=== PATIENT | male | born 1945 | race Hispanic/Latino ===

== ENCOUNTER 2018-09-22 20:41 | Emergency (ER) | payer MEDICARE, OTHER ==
[~2018-09-22 20:41] MED LIST: ASPI-1181 PO; BUSP10TA3 PO; CAND8TAB4 PO; CARV6.25 PO; CINN500C PO; INSU100I21 SQ; METF-446 PO; MONT10TA24 PO; MULT-1258 PO; OMEP20CA10 PO; PARO-37 PO; PRAV40TA3 PO; TIZA4TAB4 PO
[2018-09-22 21:32] LABS: APPEARANCE,URINE Cloudy (CLEAR); BILIRUBIN,URINE Negative (NEGATIVE); COLOR,URINE Yellow (YELLOW); GLUCOSE, URINE (UA) Negative (NEGATIVE); KETONES,URINE Negative (NEGATIVE); LEUKOCYTE ESTERASE ,URINE Negative (NEGATIVE); NITRATE,URINE Negative (NEGATIVE); OCCULT BLOOD,URINE Negative (NEGATIVE); PROTEIN,URINE Negative (NEGATIVE); UROBILINOGEN,URINE 0.2 mg/dL (0.2-1.0)
[2018-09-22 21:49] LABS: MUCUS,URINE Rare LPF (None Seen)
[2018-09-22 21:50] LABS: SQUAMOUS EPITHELIAL CELL,UR 0-2 /HPF (0-2)
[2018-09-22 21:51] LABS: BACTERIA,URINE Rare /HPF (None Seen); RBC,URINE 0-1 /HPF (0-1); WBC,URINE 0-1 /HPF (0-1)
[2018-09-22] MEDS ORDERED: ONDANSETRON HCL 4 MG/2 ML VIAL ONE (22:07)
[2018-09-22] MEDS ORDERED: FENTANYL CITRATE PF 50 MCG/1 ML 2ML VIAL ONE (22:07)
== END 2018-09-22 23:25 | disposition home or self-care (01) ==
LOC: EDH 20:41
DX: M54.5 Low back pain (principal); M62.838 Other muscle spasm; E11.9 Type 2 diabetes mellitus without complications; I25.10 Atherosclerotic heart disease of native coronary artery without angina pectoris; Z98.890 Other specified postprocedural states; W18.39XA Other fall on same level, initial encounter; Y93.01 Activity, walking, marching and hiking; Y92.89 Other specified places as the place of occurrence of the external cause; Y99.8 Other external cause status
CPT/HCPCS: 72100; 72170; 81001; 96372; 99284; J2405; J3010

== ENCOUNTER → 2019-03-03 | Outpatient (CLI) | payer OTHER, MEDICARE ==
[~2019-03-03] MED LIST changes: +OMEP-50 PO; -OMEP20CA10 PO; -TIZA4TAB4 PO; +TIZA4TAB5 PO
== END | disposition home or self-care (01) ==
LOC: SHCH 12:56
PROVIDERS: ATTEND Internal Medicine Cardiovascular Disease
DX: I11.9 Hypertensive heart disease without heart failure (principal); I08.1 Rheumatic disorders of both mitral and tricuspid valves; Z83.3 Family history of diabetes mellitus
CPT/HCPCS: 93306

== ENCOUNTER 2019-12-23 15:07 | Emergency (ER) | payer OTHER, MEDICARE ==
[~2019-12-23 15:07] MED LIST changes: -MONT10TA24 PO; +MONT10TA26 PO; -OMEP-50 PO; +OMEP20CA12 PO
[2019-12-23] MEDS ORDERED: SODIUM CHLORIDE IRRIG SOLUTION 1,000 ML IR ONE (15:08)
[2019-12-23 15:42] LABS: BASOPHILS % (AUTO) 0.7 % (0.0-5.0); EOSINOPHILS % (AUTO) 0.9 % (0.0-8.0); LYMPHOCYTES % (AUTO) 30.1 % (21.0-51.0); MEAN CORPUSCULAR HEMOGLOBIN 30.7 pg (27.0-33.0); MEAN CORPUSCULAR HGB CONC 33.1 g/dL (32.0-36.0); MEAN CORPUSCULAR VOLUME 92.9 fL (79-99); MONOCYTES % (AUTO) 6.9 % (3.0-13.0); NEUTROPHILS % (AUTO) 61.3 % (40.0-77.0); PLATELET COUNT (AUTO) 215 K/uL (130-400); RED CELL DISTRIBUTION WIDTH 12.7 % (11.0-15.5); WHITE BLOOD COUNT (AUTO) 10.4 K/uL (4.8-10.8)
[2019-12-23 15:52] LABS: CREATININE 1.7 mg/dL (0.5-1.5)
[2019-12-23 15:53] LABS: APPEARANCE,URINE Clear (CLEAR); BILIRUBIN,URINE Negative (NEGATIVE); COLOR,URINE Yellow (YELLOW); GLUCOSE, URINE (UA) Negative (NEGATIVE); KETONES,URINE Negative (NEGATIVE); LEUKOCYTE ESTERASE ,URINE Trace (NEGATIVE); NITRATE,URINE Negative (NEGATIVE); OCCULT BLOOD,URINE Negative (NEGATIVE); PROTEIN,URINE Negative (NEGATIVE); UROBILINOGEN,URINE 0.2 mg/dL (0.2-1.0)
[2019-12-23 15:58] LABS: ALBUMIN 3.6 g/dL (3.5-5.0); BILIRUBIN,TOTAL 0.3 mg/dL (0.2-1.0); TOTAL PROTEIN, SERUM 7.2 g/dL (6.0-8.3)
[2019-12-23 16:04] LABS: BACTERIA,URINE Rare /HPF (None Seen); RBC,URINE 0-1 /HPF (0-1); SQUAMOUS EPITHELIAL CELL,UR Rare /HPF (0-2); WBC,URINE 0-1 /HPF (0-1)
[2019-12-23 16:05] LABS: HYALINE CASTS, URINE 0-1 /LPF (0-1 /LPF)
== END 2019-12-23 17:30 | disposition home or self-care (01) ==
LOC: EDH 15:07
DX: E86.0 Dehydration (principal); F41.9 Anxiety disorder, unspecified; I10 Essential (primary) hypertension; E11.9 Type 2 diabetes mellitus without complications; I25.10 Atherosclerotic heart disease of native coronary artery without angina pectoris; Z90.49 Acquired absence of other specified parts of digestive tract; Z88.6 Allergy status to analgesic agent
CPT/HCPCS: 36415; 71046; 80053; 81001; 82550; 84484; 85025; 87804; 93005; 96360

== ENCOUNTER → 2020-08-29 | Outpatient (CLI) | payer OTHER, MEDICARE ==
[~2020-08-29] MED LIST changes: -ASPI-1181 PO; +ASPI-1443 PO; -MONT10TA26 PO; +MONT10TA96 PO
== END | disposition home or self-care (01) ==
LOC: RAH 12:57
PROVIDERS: ATTEND Internal Medicine
DX: S91.209A Unspecified open wound of unspecified toe(s) with damage to nail, initial encounter (principal); X58.XXXA Exposure to other specified factors, initial encounter; Y93.89 Activity, other specified; Y92.89 Other specified places as the place of occurrence of the external cause; Y99.8 Other external cause status
CPT/HCPCS: 73620

== ENCOUNTER → 2021-01-24 | Outpatient (CLI) | payer OTHER, MEDICARE ==
[~2021-01-24] MED LIST changes: +MONT10TA32 PO; -MONT10TA96 PO
== END | disposition home or self-care (01) ==
LOC: RAH 12:52
PROVIDERS: ATTEND Internal Medicine
DX: I11.9 Hypertensive heart disease without heart failure (principal); M25.551 Pain in right hip; E11.51 Type 2 diabetes mellitus with diabetic peripheral angiopathy without gangrene
CPT/HCPCS: 93925

== ENCOUNTER 2021-08-25 10:12 | Emergency (ER) | payer OTHER, MEDICARE ==
[~2021-08-25] VITALS: Ht 162.6 cm; Wt 79.4 kg
[~2021-08-25 10:12] MED LIST changes: +CAND8TAB14 PO; -CAND8TAB4 PO; +MONT-39 PO; -MONT10TA32 PO; +TIZA-211 PO; -TIZA4TAB5 PO
[2021-08-25] MEDS ORDERED: KETOROLAC 30MG VIAL (30MG/ML) IM ONE (11:00)
[2021-08-25] MEDS ORDERED: ORPHENADRINE CITRATE 30 MG/ML ML IM ONE (11:00)
[2021-08-25] MEDS ORDERED: ORPH-43 PO (11:31)
[2021-08-25] MEDS ORDERED: MELO7.5T12 PO (11:31)
[2021-08-25] MEDS ORDERED: LIDOP TP (11:31)
[2021-08-25 11:38] VITALS: BP 105/65
== END 2021-08-25 11:47 | disposition home or self-care (01) ==
LOC: EDH 10:12
DX: R51.9 Headache, unspecified (principal); M62.830 Muscle spasm of back; M62.838 Other muscle spasm; I11.9 Hypertensive heart disease without heart failure; E11.9 Type 2 diabetes mellitus without complications; Z88.5 Allergy status to narcotic agent; Z79.1 Long term (current) use of non-steroidal anti-inflammatories (NSAID); Z79.4 Long term (current) use of insulin; Z79.82 Long term (current) use of aspirin; Z79.899 Other long term (current) drug therapy
CPT/HCPCS: 93005; 96372 ×2; 99284; J1885; J2360

== ENCOUNTER 2022-07-07 14:22 | Emergency (ER) | payer OTHER, MEDICARE ==
[~2022-07-07] VITALS: Ht 154.9 cm; Wt 83.0 kg
[~2022-07-07 14:22] MED LIST changes: +LIDOP TP; +MELO7.5T12 PO; +ORPH-43 PO
[2022-07-07 14:24] VITALS: BP 154/58
[2022-07-07] MEDS ORDERED: CIPROFLOXACIN HCL 0.2%/HYDROCORT 1% 10 ML OTIC SUSP ONE (14:51)
[2022-07-07] MEDS ORDERED: HYDROCODONE/ACETAMINOPHEN 5/325 MG TAB PO ONE (15:00)
[2022-07-07] MEDS ORDERED: CIPROFLOXACIN HCL 0.2%/HYDROCORT 1% 10 ML OTIC SUSP OTIC SCH (15:00)
[2022-07-07] MEDS ORDERED: TRAM1TAB2 PO (15:11)
== END 2022-07-07 15:15 | disposition home or self-care (01) ==
LOC: EDH 14:22
DX: H92.01 Otalgia, right ear (principal); E11.9 Type 2 diabetes mellitus without complications; I10 Essential (primary) hypertension; E78.00 Pure hypercholesterolemia, unspecified; Z79.4 Long term (current) use of insulin; Z79.899 Other long term (current) drug therapy

== ENCOUNTER 2022-08-04 10:43 | Inpatient (IN) | payer OTHER, MEDICARE ==
[~2022-08-04] VITALS: Ht 165.1 cm; Wt 81.6 kg
[~2022-08-04 10:43] MED LIST changes: +TRAM1TAB2 PO
[2022-08-04] MEDS ORDERED: 0.9%NACL 1000ML 1,000 ML IV ONE (11:30)
[2022-08-04 11:36] LABS: ALBUMIN 2.7 g/dL (3.5-5.0); BASOPHILS % (AUTO) 0.7 % (0.0-5.0); CREATININE 1.2 mg/dL (0.5-1.5); EOSINOPHILS % (AUTO) 0.3 % (0.0-8.0); HEMATOCRIT 31.5 % (42-54); LYMPHOCYTES % (AUTO) 11.5 % (21.0-51.0); MEAN CORPUSCULAR HEMOGLOBIN 30.2 pg (27.0-33.0); MEAN CORPUSCULAR VOLUME 91.6 fL (79-99); MONOCYTES % (AUTO) 7.1 % (3.0-13.0); PLATELET COUNT (AUTO) 244 K/uL (130-400); RED BLOOD CELL COUNT(AUTO) 3.44 MIL/uL (4.50-6.20); RED CELL DISTRIBUTION WIDTH 14.4 % (11.0-15.5); TOTAL PROTEIN, SERUM 6.9 g/dL (6.0-8.3); WHITE BLOOD COUNT (AUTO) 7.7 K/uL (4.8-10.8)
[2022-08-04 11:38] LABS: POTASSIUM 2.8 mmol/L (3.5-5.1)
[2022-08-04 11:54] LABS: INR 0.97 (0.85-1.15); PROTHROMBIN TIME 10.6 SEC (9.6-11.6)
[2022-08-04] MEDS ORDERED: 0.9%NACL 1000ML 1,914 ML IV ONE (13:00)
[2022-08-04] MEDS ORDERED: CEFTRIAXONE 2GM VIAL IVP ONE (13:00)
[2022-08-04] MEDS ORDERED: POTASSIUM BICARB/CIT AC 25 MEQ TABLET.EFF PO ONE (13:00)
[2022-08-04 13:30] LABS: MAGNESIUM 1.5 mg/dL (1.80-2.40)
[2022-08-04 13:35] LABS: APPEARANCE,URINE CLOUDY (CLEAR); BILIRUBIN,URINE NEGATIVE (NEGATIVE); COLOR,URINE YELLOW (YELLOW); GLUCOSE, URINE (UA) 150 mg/dL (NEGATIVE); KETONES,URINE NEGATIVE (NEGATIVE); LEUKOCYTE ESTERASE ,URINE NEGATIVE Leu/uL (NEGATIVE); NITRATE,URINE NEGATIVE (NEGATIVE); OCCULT BLOOD,URINE SMALL (NEGATIVE); PH,URINE 5.5 (5.0-8.0); PROTEIN,URINE 70 mg/dL (NEGATIVE); UROBILINOGEN,URINE 0.2 mg/dL (0.2-1.0)
[2022-08-04 13:47] LABS: BACTERIA,URINE RARE /HPF (None Seen); MUCUS,URINE FEW LPF (None Seen); SQUAMOUS EPITHELIAL CELL,UR RARE /HPF (0-2)
[2022-08-04] MEDS ORDERED: CLONIDINE HCL 0.1 MG TABLET PO PRN (15:00)
[2022-08-04] MEDS ORDERED: LACTULOSE 20 GM/30 ML UDCUP PO PRN (15:00)
[2022-08-04] MEDS ORDERED: GLUCAGON 1MG KIT 1 MG ML IM PRN (15:00)
[2022-08-04] MEDS ORDERED: ONDANSETRON 4MG INJ IVP PRN (15:00)
[2022-08-04] MEDS ORDERED: HYDRALAZINE 20MG/ML VIAL IV PRN (15:00)
[2022-08-04] MEDS ORDERED: POTASSIUM CHLORIDE 10% ELIXIR 20 MEQ/15 ML UDCUP PO PRN (15:00)
[2022-08-04] MEDS ORDERED: CEFTRIAXONE 1G VIAL IVP SCH (15:00)
[2022-08-04] MEDS ORDERED: LIDOCAINE HCL-MPF 1% 2ML VIAL IV PRN ×2 (15:00)
[2022-08-04] MEDS ORDERED: POTASSIUM CHLORIDE 20MEQ/100ML 100 ML IV PRN (15:00)
[2022-08-04] MEDS ORDERED: DEXTROSE 50%-WATER 50 ML DISP.SYRIN IV PRN (15:00)
[2022-08-04] MEDS ORDERED: ACETAMINOPHEN 650 MG SUPPOSITORY RC PRN (15:00)
[2022-08-04] MEDS ORDERED: ACETAMINOPHEN 325 MG TAB PO PRN (15:00)
[2022-08-04] MEDS ORDERED: VANCOMYCIN 1G VIAL IVPB ONE (15:30)
[2022-08-04] MEDS ORDERED: VANCOMYCIN PROTOCOL PER PHARMACY IV SCH (15:30)
[2022-08-04] MEDS: MAGNESIUM 2GM PREMIX 50ML 50 ML IV PRN (16:04)
[2022-08-04] MEDS: DOXYCYCLINE 100MG+NS 250ML IV SCH (16:04)
[2022-08-04] MEDS: LACTATED RINGERS 1000ML 1,000 ML IV SCH (16:05)
[2022-08-04] MEDS ORDERED: IOHEXOL-350 50ML VIAL IV ONE (16:44)
[2022-08-04 17:31] LABS: AMPHET/METH SCREEN,URINE NEGATIVE (NEGATIVE); BARBITURATE SCREEN, URINE NEGATIVE (NEGATIVE); BENZODIAZEPINES SCREEN,URINE NEGATIVE (NEGATIVE); CANNABINOID SCREEN,URINE NEGATIVE (NEGATIVE); COCAINE SCREEN,URINE NEGATIVE (NEGATIVE); OPIATE SCREEN,URINE NEGATIVE (NEGATIVE); PHENCYCLIDINE SCREEN,URINE NEGATIVE (NEGATIVE)
[2022-08-04] MEDS ORDERED: ACYCLOVIR 1000 MG VIAL IV SCH (18:30)
[2022-08-04] MEDS: VANCOMYCIN 1.75 GM/250 ML BAG 250 ML IV SCH (18:37)
[2022-08-04 19:45] VITALS: BP 134/68
[2022-08-04 23:00] VITALS: BP 162/63
[2022-08-04] MEDS: NACL 0.9% IV SCH (23:15)
[2022-08-04] MEDS: ACYCLOVIR IV SCH (23:15)
[2022-08-05] MEDS ORDERED: LOSA50TA64 PO (01:39)
[2022-08-05] MEDS ORDERED: [UNRECOGNIZED DRUG - CODE] PO (01:39)
[2022-08-05] MEDS ORDERED: SIMV-46 PO (01:39)
[2022-08-05] MEDS ORDERED: GABA-529 PO (01:39)
[2022-08-05] MEDS ORDERED: CILO100T3 PO (01:39)
[2022-08-05] MEDS: NACL 0.9% IV SCH ×3 (03:20→18:29)
[2022-08-05] MEDS: ACYCLOVIR IV SCH ×3 (03:20→18:29)
[2022-08-05] MEDS: DOXYCYCLINE 100MG+NS 250ML IV SCH ×2 (03:20→15:31)
[2022-08-05] MEDS: CEFTRIAXONE 1G VIAL IVP SCH ×2 (03:22→14:24)
[2022-08-05 03:39] VITALS: BP 148/52
[2022-08-05 03:49] LABS: BASOPHILS % (AUTO) 0.6 % (0.0-5.0); EOSINOPHILS % (AUTO) 0.1 % (0.0-8.0); HEMATOCRIT 30.9 % (42-54); LYMPHOCYTES % (AUTO) 17.3 % (21.0-51.0); MEAN CORPUSCULAR HEMOGLOBIN 29.6 pg (27.0-33.0); MEAN CORPUSCULAR VOLUME 92.2 fL (79-99); MONOCYTES % (AUTO) 7.6 % (3.0-13.0); NEUTROPHILS % (AUTO) 73.9 % (40.0-77.0); PLATELET COUNT (AUTO) 220 K/uL (130-400); RED BLOOD CELL COUNT(AUTO) 3.35 MIL/uL (4.50-6.20); RED CELL DISTRIBUTION WIDTH 14.5 % (11.0-15.5); WHITE BLOOD COUNT (AUTO) 8.3 K/uL (4.8-10.8)
[2022-08-05 04:11] LABS: MAGNESIUM 1.7 mg/dL (1.80-2.40); PHOSPHORUS 2.5 mg/dL (2.5-4.9); POTASSIUM 3.1 mmol/L (3.5-5.1)
[2022-08-05] MEDS: POTASSIUM CHLORIDE 20MEQ/100ML 100 ML IV PRN (04:32)
[2022-08-05] MEDS: MAGNESIUM 2GM PREMIX 50ML 50 ML IV PRN (04:33)
[2022-08-05 07:15] VITALS: BP 144/60
[2022-08-05 08:43] LABS: HEMATOCRIT 32.3 % (42-54); MEAN CORPUSCULAR HEMOGLOBIN 29.7 pg (27.0-33.0); MEAN CORPUSCULAR HGB CONC 31.6 g/dL (32.0-36.0); MEAN CORPUSCULAR VOLUME 93.9 fL (79-99); PLATELET COUNT (AUTO) 218 K/uL (130-400); RED BLOOD CELL COUNT(AUTO) 3.44 MIL/uL (4.50-6.20); RED CELL DISTRIBUTION WIDTH 14.6 % (11.0-15.5); WHITE BLOOD COUNT (AUTO) 9.2 K/uL (4.8-10.8)
[2022-08-05 09:05] LABS: LYMPHOCYTES % (MANUAL) 24 % (22-44); MAN.DIFF COMMENT-IMPRESSION MANUAL DIFFERENTIAL; MONOCYTES % (MANUAL) 5 % (2-9); PLATELET MORPHOLOGY COMMENT ADEQUATE; SEGMENTED NEUTROPHILS % 71 % (40-70)
[2022-08-05 09:22] LABS: ALANINE AMINOTRANSFERASE 15 U/L (12-78); ALBUMIN 2.4 g/dL (3.5-5.0); AMMONIA 12 umol/L (11-32); ASPARTATE AMINOTRANSFERASE 23 U/L (10-37); BILIRUBIN,DIRECT < 0.1 mg/dL (0.0-0.3); THYROID STIMULATING HORMONE 0.98 uIU/mL (0.36-3.74); TOTAL PROTEIN, SERUM 6.4 g/dL (6.0-8.3)
[2022-08-05] MEDS: KCL 20 MEQ ERTAB PO PRN ×2 (09:28→12:41)
[2022-08-05 11:15] VITALS: BP 150/51
[2022-08-05] MEDS ORDERED: COMPOUND IV REFRIGERATED 1 EACH IVSOLN MISC PRN (12:00)
[2022-08-05] MEDS ORDERED: COMPOUND IV MISC 1 EACH IVSOLN MISC PRN (12:00)
[2022-08-05 15:15] VITALS: BP 161/69
[2022-08-05] MEDS: VANCOMYCIN 1.75 GM/250 ML BAG 250 ML IV SCH (16:50)
[2022-08-05] MEDS ORDERED: AMPICILLIN 1GM+NS 50ML IV SCH (19:30)
[2022-08-05 20:00] VITALS: BP 158/67
[2022-08-05] MEDS: AMPICILLIN 1GM+NS 50ML IV SCH (20:31)
[2022-08-05] MEDS: LACTATED RINGERS 1000ML 1,000 ML IV SCH (20:32)
[2022-08-06] VITALS (7 sets, daily range): BP systolic 153–179; BP diastolic 67–75
[2022-08-06] MEDS: AMPICILLIN 1GM+NS 50ML IV SCH ×7 (00:25→23:32)
[2022-08-06] MEDS: CEFTRIAXONE 1G VIAL IVP SCH ×2 (03:19→15:09)
[2022-08-06] MEDS: NACL 0.9% IV SCH ×3 (03:24→17:07)
[2022-08-06] MEDS: ACYCLOVIR IV SCH ×3 (03:24→17:07)
[2022-08-06 04:27] LABS: HEMATOCRIT 28.7 % (42-54); MEAN CORPUSCULAR HEMOGLOBIN 29.1 pg (27.0-33.0); MEAN CORPUSCULAR HGB CONC 33.1 g/dL (32.0-36.0); MEAN CORPUSCULAR VOLUME 87.8 fL (79-99); RED BLOOD CELL COUNT(AUTO) 3.27 MIL/uL (4.50-6.20); RED CELL DISTRIBUTION WIDTH 14.6 % (11.0-15.5); WHITE BLOOD COUNT (AUTO) 6.9 K/uL (4.8-10.8)
[2022-08-06 04:49] LABS: ALBUMIN 2.2 g/dL (3.5-5.0); POTASSIUM 3.5 mmol/L (3.5-5.1); TOTAL PROTEIN, SERUM 6.1 g/dL (6.0-8.3)
[2022-08-06 07:34] LABS: INR 0.97 (0.85-1.15); PROTHROMBIN TIME 10.6 SEC (9.6-11.6)
[2022-08-06 07:35] LABS: PARTIAL THROMBOPLASTIN TIME 34.6 SEC (26.3-35.5)
[2022-08-06] MEDS: FAMOTIDINE 20MG TAB PO SCH ×2 (11:25→21:05)
[2022-08-06] MEDS: LACTATED RINGERS 1000ML 1,000 ML IV SCH ×2 (11:25→23:36)
[2022-08-06] MEDS: MULTIVITAMIN WITH MINERALS TABLET PO SCH (11:43)
[2022-08-06] MEDS: GABAPENTIN 100 MG CAPSULE PO SCH ×2 (13:17→21:05)
[2022-08-06] MEDS: VANCOMYCIN 1.75 GM/250 ML BAG 250 ML IV SCH (16:28)
[2022-08-06] MEDS: INSULIN GLARGINE 100 UNITS/ML 10 ML VIAL SQ SCH (21:14)
[2022-08-06] MEDS: INSULIN HUMULIN R 100 UNIT/ML 3ML SQ SCH (21:15)
[2022-08-07] MEDS: CEFTRIAXONE 1G VIAL IVP SCH ×2 (02:54→15:31)
[2022-08-07] MEDS: ACYCLOVIR IV SCH ×3 (02:54→17:32)
[2022-08-07] MEDS: NACL 0.9% IV SCH ×3 (02:54→17:32)
[2022-08-07 04:41] VITALS: BP 163/71
[2022-08-07 05:24] LABS: BASOPHILS % (AUTO) 0.6 % (0.0-5.0); HEMATOCRIT 30.1 % (42-54); LYMPHOCYTES % (AUTO) 29.5 % (21.0-51.0); MEAN CORPUSCULAR HEMOGLOBIN 29.4 pg (27.0-33.0); MEAN CORPUSCULAR HGB CONC 32.6 g/dL (32.0-36.0); MEAN CORPUSCULAR VOLUME 90.4 fL (79-99); MONOCYTES % (AUTO) 14.2 % (3.0-13.0); NEUTROPHILS % (AUTO) 54.4 % (40.0-77.0); PLATELET COUNT (AUTO) 244 K/uL (130-400); RED BLOOD CELL COUNT(AUTO) 3.33 MIL/uL (4.50-6.20); WHITE BLOOD COUNT (AUTO) 6.9 K/uL (4.8-10.8)
[2022-08-07 05:33] LABS: CREATININE 0.9 mg/dL (0.5-1.5); MAGNESIUM 1.6 mg/dL (1.80-2.40); POTASSIUM 3.1 mmol/L (3.5-5.1)
[2022-08-07] MEDS: AMPICILLIN 1GM+NS 50ML IV SCH ×5 (05:37→20:22)
[2022-08-07] MEDS: INSULIN HUMULIN R 100 UNIT/ML 3ML SQ SCH ×4 (06:33→20:24)
[2022-08-07] MEDS: MAGNESIUM 2GM PREMIX 50ML 50 ML IV PRN (06:49)
[2022-08-07] MEDS: SIMVASTATIN 20 MG TABLET PO SCH ×2 (08:59→20:22)
[2022-08-07] MEDS: FAMOTIDINE 20MG TAB PO SCH ×2 (08:59→20:22)
[2022-08-07] MEDS: LOSARTAN 50 MG TABLET PO SCH (08:59)
[2022-08-07] MEDS: GABAPENTIN 100 MG CAPSULE PO SCH ×3 (08:59→20:22)
[2022-08-07] MEDS: MULTIVITAMIN WITH MINERALS TABLET PO SCH (08:59)
[2022-08-07] MEDS: KCL 20 MEQ ERTAB PO PRN ×3 (09:00→12:11)
[2022-08-07] MEDS: POTASSIUM CHLORIDE 20MEQ/100ML 100 ML IV PRN ×2 (09:00→12:11)
[2022-08-07 09:52] VITALS: BP 189/69
[2022-08-07] MEDS: LACTATED RINGERS 1000ML 1,000 ML IV SCH (10:06)
[2022-08-07 11:50] VITALS: BP 148/72
[2022-08-07 14:27] LABS: MAGNESIUM 2.1 mg/dL (1.80-2.40); POTASSIUM 4.6 mmol/L (3.5-5.1)
[2022-08-07] MEDS: VANCOMYCIN 1.75 GM/250 ML BAG 250 ML IV SCH (15:33)
[2022-08-07 15:43] VITALS: BP 179/76
[2022-08-07] MEDS: INSULIN GLARGINE 100 UNITS/ML 10 ML VIAL SQ SCH (20:25)
[2022-08-07 21:06] VITALS: BP 130/58
[2022-08-07 23:59] VITALS: BP 133/63
[2022-08-08] MEDS: AMPICILLIN 1GM+NS 50ML IV SCH ×6 (02:06→17:55)
[2022-08-08] MEDS: LACTATED RINGERS 1000ML 1,000 ML IV SCH ×2 (02:10→12:20)
[2022-08-08] MEDS: NACL 0.9% IV SCH ×3 (02:12→17:51)
[2022-08-08] MEDS: ACYCLOVIR IV SCH ×3 (02:12→17:51)
[2022-08-08] MEDS: CEFTRIAXONE 1G VIAL IVP SCH ×2 (03:54→13:05)
[2022-08-08 04:00] VITALS: BP 137/61
[2022-08-08] MEDS: INSULIN HUMULIN R 100 UNIT/ML 3ML SQ SCH ×3 (06:22→17:53)
[2022-08-08 09:00] VITALS: BP 173/55
[2022-08-08 11:30] VITALS: BP 151/65
[2022-08-08] MEDS: MULTIVITAMIN WITH MINERALS TABLET PO SCH (13:05)
[2022-08-08] MEDS: FAMOTIDINE 20MG TAB PO SCH (13:05)
[2022-08-08] MEDS: GABAPENTIN 100 MG CAPSULE PO SCH ×2 (13:06→13:12)
[2022-08-08] MEDS: LOSARTAN 50 MG TABLET PO SCH (13:06)
[2022-08-08 16:00] VITALS: BP 161/62
[2022-08-08] MEDS: VANCOMYCIN 1.75 GM/250 ML BAG 250 ML IV SCH (16:00)
[2022-08-08 17:51] VITALS: BP 161/62
== END 2022-08-08 20:15 | DRG 97 ==
LOC: EDH 10:43 → EDHIP 14:54 → 4BH 19:30
PROVIDERS: ADMIT Internal Medicine; ATTEND Internal Medicine
DX: G04.90 Encephalitis and encephalomyelitis, unspecified (principal); G93.41 Metabolic encephalopathy; F05 Delirium due to known physiological condition; Z20.822 Contact with and (suspected) exposure to COVID-19; I10 Essential (primary) hypertension; E78.5 Hyperlipidemia, unspecified; E87.6 Hypokalemia; H66.91 Otitis media, unspecified, right ear; J32.0 Chronic maxillary sinusitis; G47.33 Obstructive sleep apnea (adult) (pediatric); E11.51 Type 2 diabetes mellitus with diabetic peripheral angiopathy without gangrene; H54.8 Legal blindness, as defined in USA; E83.42 Hypomagnesemia; I48.0 Paroxysmal atrial fibrillation; E11.65 Type 2 diabetes mellitus with hyperglycemia; Z86.61 Personal history of infections of the central nervous system; Z79.4 Long term (current) use of insulin
CPT/HCPCS: 36415; 70450; 70488; 71045; 80048; 80053; 80076; 80202; 80305; 81001; 82140; 82550; 82607; 82948; 83605; 83735; 83874; 84100; 84132; 84145; 84443; 84484; 85025; 85027; 85610; 85730; 87040; 87088; 87635; 87804; 87880; 93005; C1894; C9803; G0378; J0133; J0290; J0696; J1815; J3475; J3480; J3490; J7050; J7120; Q9967

== ENCOUNTER 2023-01-28 10:16 | Emergency (ER) | payer OTHER, MEDICARE ==
[~2023-01-28] VITALS: Ht 165.1 cm; Wt 83.5 kg
[~2023-01-28 10:16] MED LIST changes: -ASPI-1443 PO; -BUSP10TA3 PO; -CAND8TAB14 PO; -CARV6.25 PO; +CILO100T3 PO; -CINN500C PO; +GABA-529 PO; -INSU100I21 SQ; -LIDOP TP; +LOSA50TA64 PO; -MELO7.5T12 PO; -MONT-39 PO; -OMEP20CA12 PO; -ORPH-43 PO; -PARO-37 PO; -PRAV40TA3 PO; +SIMV-46 PO; -TIZA-211 PO; -TRAM1TAB2 PO; +[UNRECOGNIZED DRUG - CODE] PO
[2023-01-28 11:26] LABS: BASOPHILS % (AUTO) 0.8 % (0.0-5.0); HEMATOCRIT 34.1 % (42-54); LYMPHOCYTES % (AUTO) 24.4 % (21.0-51.0); MEAN CORPUSCULAR HEMOGLOBIN 29.6 pg (27.0-33.0); MEAN CORPUSCULAR HGB CONC 32.3 g/dL (32.0-36.0); MEAN CORPUSCULAR VOLUME 91.7 fL (79-99); MONOCYTES % (AUTO) 7.8 % (3.0-13.0); NEUTROPHILS % (AUTO) 65.7 % (40.0-77.0); PLATELET COUNT (AUTO) 213 K/uL (130-400); RED BLOOD CELL COUNT(AUTO) 3.72 MIL/uL (4.50-6.20); RED CELL DISTRIBUTION WIDTH 13.8 % (11.0-15.5); WHITE BLOOD COUNT (AUTO) 8.8 K/uL (4.8-10.8)
[2023-01-28 11:35] LABS: ALBUMIN 3.4 g/dL (3.5-5.0); CREATININE 1.4 mg/dL (0.5-1.5); POTASSIUM 4.6 mmol/L (3.5-5.1); TOTAL PROTEIN, SERUM 7.2 g/dL (6.0-8.3)
[2023-01-28 12:47] LABS: APPEARANCE,URINE CLEAR (CLEAR); BILIRUBIN,URINE NEGATIVE (NEGATIVE); COLOR,URINE COLORLESS (YELLOW); GLUCOSE, URINE (UA) NEGATIVE (NEGATIVE); KETONES,URINE NEGATIVE (NEGATIVE); LEUKOCYTE ESTERASE ,URINE NEGATIVE Leu/uL (NEGATIVE); NITRATE,URINE NEGATIVE (NEGATIVE); OCCULT BLOOD,URINE NEGATIVE (NEGATIVE); PROTEIN,URINE NEGATIVE (NEGATIVE); UROBILINOGEN,URINE 0.2 mg/dL (0.2-1.0)
[2023-01-28] MEDS ORDERED: 0.9%NACL 1000ML 1,000 ML IV ONE (14:00)
[2023-01-28 16:06] VITALS: BP 160/56
[2023-01-28] MEDS ORDERED: PRED20TA3 PO (16:58)
[2023-01-28] MEDS ORDERED: AZIT500T4 PO (16:58)
[2023-01-28] MEDS ORDERED: ALBU2SYR3 PO (16:58)
== END 2023-01-28 17:13 | disposition home or self-care (01) ==
LOC: EDH 10:16
DX: S60.511A Abrasion of right hand, initial encounter (principal); J18.9 Pneumonia, unspecified organism; I10 Essential (primary) hypertension; E78.00 Pure hypercholesterolemia, unspecified; E11.9 Type 2 diabetes mellitus without complications; Z88.5 Allergy status to narcotic agent; Z79.899 Other long term (current) drug therapy; Z20.822 Contact with and (suspected) exposure to COVID-19; W18.30XA Fall on same level, unspecified, initial encounter; Y93.89 Activity, other specified; Y92.89 Other specified places as the place of occurrence of the external cause; Y99.8 Other external cause status
CPT/HCPCS: 99285; 70450; 71045; 87635; 84484; 80053; 85025; 87880; 87804 ×2; 83605; 81003; 36415; 73630; 73090; 73130; 73060; 73522; 73552; 73562; 73030; 72070; 73590; 72131; 70486; 93005; C9803

== ENCOUNTER 2023-04-30 22:03 | Emergency (ER) | payer OTHER, MEDICARE ==
[~2023-04-30] VITALS: Ht 165.1 cm; Wt 111.1 kg
[~2023-04-30 22:03] MED LIST changes: +ALBU2SYR3 PO; +AZIT500T4 PO; +PRED20TA3 PO
[2023-04-30] MEDS ORDERED: FUROSEMIDE 40MG VIAL IV ONE (22:30)
[2023-04-30 22:33] LABS: BASOPHILS # (AUTO) 0.08 K/uL (0.00-0.20); BASOPHILS % (AUTO) 1.1 % (0.0-5.0); EOSINOPHILS # (AUTO) 0.12 K/uL (0.00-0.70); EOSINOPHILS % (AUTO) 1.7 % (0.0-8.0); HEMATOCRIT 36.8 % (42-54); IMMATURE GRANULOCYTE ABSOLUTE 0.01 K/uL (0-1); LYMPHOCYTES # (AUTO) 2.8 K/uL (1.0-4.8); LYMPHOCYTES % (AUTO) 39.1 % (21.0-51.0); MEAN CORPUSCULAR HEMOGLOBIN 29.9 pg (27.0-33.0); MEAN CORPUSCULAR HGB CONC 31.8 g/dL (32.0-36.0); MEAN CORPUSCULAR VOLUME 94.1 fL (79-99); MONOCYTES # (AUTO) 0.7 K/uL (0.1-1.0); NEUTROPHILS # (AUTO) 3.4 K/uL (1.8-7.7); PLATELET COUNT (AUTO) 217 K/uL (130-400); RED BLOOD CELL COUNT(AUTO) 3.91 MIL/uL (4.50-6.20); RED CELL DISTRIBUTION WIDTH 13.3 % (11.0-15.5); WHITE BLOOD COUNT (AUTO) 7.2 K/uL (4.8-10.8)
[2023-04-30 22:44] LABS: CREATININE 1.4 mg/dL (0.5-1.5); INR < 0.93 (0.85-1.15); POTASSIUM 3.8 mmol/L (3.5-5.1); PROTHROMBIN TIME 10.7 SEC (9.6-11.6)
[2023-04-30 22:45] LABS: PARTIAL THROMBOPLASTIN TIME 30.5 SEC (26.3-35.5)
[2023-04-30 22:48] LABS: ALBUMIN 3.3 g/dL (3.5-5.0); BILIRUBIN,TOTAL 0.3 mg/dL (0.2-1.0); TOTAL PROTEIN, SERUM 7.3 g/dL (6.0-8.3)
[2023-04-30 22:58] LABS: B-TYPE NATRIURETIC PEPTIDE 151 pg/mL (0-100)
[2023-04-30] MEDS ORDERED: HYDRALAZINE 20MG/ML VIAL IV ONE (23:00)
[2023-05-01 01:22] VITALS: BP 136/52; PULSE 65; RESP 18; O2SAT 99
== END 2023-05-01 01:20 | disposition home or self-care (01) ==
LOC: EDH 22:03
DX: R60.0 Localized edema (principal); I11.0 Hypertensive heart disease with heart failure; E11.9 Type 2 diabetes mellitus without complications; Z90.49 Acquired absence of other specified parts of digestive tract; I50.9 Heart failure, unspecified; Z79.02 Long term (current) use of antithrombotics/antiplatelets; Z79.52 Long term (current) use of systemic steroids; Z79.899 Other long term (current) drug therapy; Z88.5 Allergy status to narcotic agent
CPT/HCPCS: 99285; 93970; 96374; 71045; 96375; 82550; 84484 ×2; 80053; 83880; 85025; 85610; 85730; 36415; 93005 ×2; J0360; J1940

== ENCOUNTER → 2023-07-29 | Outpatient (CLI) | payer OTHER, MEDICARE ==
[2023-07-29 16:54] LABS: ALBUMIN 3.6 g/dL (3.5-5.0); BILIRUBIN,TOTAL 0.5 mg/dL (0.2-1.0); CREATININE 1.3 mg/dL (0.5-1.5); POTASSIUM 4.6 mmol/L (3.5-5.1); THYROID STIMULATING HORMONE 2.5 uIU/mL (0.36-3.74); TOTAL PROTEIN, SERUM 7.8 g/dL (6.0-8.3)
== END | disposition home or self-care (01) ==
LOC: LAB 14:16
PROVIDERS: ATTEND Internal Medicine Cardiovascular Disease
DX: R00.1 Bradycardia, unspecified (principal)
CPT/HCPCS: 36415; 80053; 83735; 84436; 84443

== ENCOUNTER → 2023-08-08 | Outpatient (CLI) | payer OTHER, MEDICARE | END | disposition home or self-care (01) | LOC: RAH 13:53 | PROVIDERS: ATTEND Internal Medicine Cardiovascular Disease | DX: R00.1 Bradycardia, unspecified (principal) | CPT/HCPCS: 93306 ==

== ENCOUNTER 2024-09-15 21:24 | Observation (INO) | payer OTHER, MEDICARE ==
[~2024-09-15] VITALS: Ht 167.6 cm; Wt 90.7 kg
[~2024-09-15 21:24] MED LIST changes: +ALBU2SYR27 PO; -ALBU2SYR3 PO; -AZIT500T4 PO; +CHOL100040 PO; -PRED20TA3 PO; -[UNRECOGNIZED DRUG - CODE] PO
--- NOTE | 2024-09-15 21:37 | ERN ---
ED Note History of Present Illness Stated Complaint: GENERAL BODY WEAKNESS Chief Complaint: Weakness Time Seen by MD: 21:31 Dictation: 78-year-old Polish male with who presented to ED via EMS with complaints of left shoulder pain worse than the right shoulder pain. He also reported generalized weakness all this going on for months but the son and [id number] apparently told him to go to the emergency room and get himself checked out. He came via EMS.no relatives present at bedside. No history of any fall recently. No history of any picking up heavy weights. Temperature 98.1 pulse 70 respirations 16 blood pressure 123/72 with a pulse oximetry of 100% on room air. 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, DM type II, hyperlipidemia,Greater than 70% stenosis noted above the right internal carotid artery,Heart failure reduced ejection fraction 45 to 50% per echocardiogram 09/29/2023 Allergies: Coded Allergies: morphine (Unverified Allergy, Unknown, HAULLUCINATIONS, 01/06/15) Home Meds Reported Medications Losartan Potassium (Losartan Potassium) 25 Mg Tablet, 1 TAB PO DAILY for 30 Days, #30 TAB 0 Refills 09/15/24 Sulfamethoxazole/Trimethoprim (Sulfamethoxazole-Tmp Ss Tablet) 400 Mg-80 Mg Tablet, 1 TAB PO BID for 10 Days, #20 TAB 0 Refills 09/15/24 Gabapentin (Neurontin) 300 Mg Capsule, 1 CAP PO TID for 30 Days, #90 CAP 0 Refills 09/15/24 Simvastatin (Simvastatin) 40 Mg Tablet, 40 MG PO HS, TAB 09/29/23 Metformin HCl (Metformin HCl) 1,000 Mg Tablet, 1000 MG PO BID, TAB 09/29/23 Discontinued Reported Medications Cholecalciferol (Vitamin D3) (Vitamin D3) 25 Mcg (1000 Unit) Capsule, 25 MCG PO DAILY, CAP 09/29/23 Losartan Potassium (Losartan Potassium) 50 Mg Tablet, 50 MG PO DAILY, TAB 09/29/23 Cilostazol (Cilostazol) 100 Mg Tablet, 100 MG PO BIDAC, TAB 09/29/23 Cilostazol (Cilostazol) 100 Mg Tablet, 100 MG PO BID, TAB 08/05/22 Simvastatin (Simvastatin) 40 Mg Tablet, 40 MG PO DAILY, TAB 08/05/22 Gabapentin (Gabapentin) 100 Mg Capsule, 100 MG PO TID, CAP 08/05/22 Multivits-Min/FA/Lycopene/Lut (Centrum Silver Tablet) 1 Each Tablet, 1 EACH PO AM, TAB 01/06/15 Discontinued Scripts Albuterol Sulfate (Albuterol Sulfate) 2 Mg/5 Ml Syrup, 2 MG PO TID for 5 Days, #75 ML Prov:BRINA HAGER GEOSPATIAL INTELLIGENCE ANALYST 01/28/23 Past Medical History Past Medical History: CAD, CHF, Diabetes-Type II, Hypertension, Other Additional Past Medical Hx: BRADYCARDIA Surgical History: Appendectomy Surgical History Other: TUMOR/MASS FROM BACK, cardiac stents Family History: Negative Social History: Negative, Lives with family RN Note Reviewed/Agreed w/PFSH: Yes Review of System Dictation Constitutional: Negative for fever,chills, and weight loss, generalized weakness Eyes: Negative for injury, pain,redness, and discharge ENT: Negative for injury,pain or swelling Cardiovascular: Negative for chest pain, palpitations, and edema Respiratory: Negative for shortness of breath, cough, and wheezing, Abdomen/GI: Negative for abdominal pain, nausea, vomiting, diarrhea, and constipation Back: Negative for injury and pain : Negative for injury, bleeding and discharge MS/Extremity: Negative for injury and deformity bilateral shoulder pains left more than the right Skin: Negative for rash, and discoloration Neuro: Negative for headache, weakness, numbness, tingling, and seizure Psych: Negative for suicide ideation, homicidal ideation, and hallucinations Initial Vital Sign VS Vital Signs Date Time Temp Pulse Resp B/P (MAP) Pulse Ox O2 Delivery O2 Flow Rate FiO2 09/15/24 21:29 98.1 70 16 123/72 100 Room Air 0 Physical Exam Dictation General: awake, alert, NAD wheelchair-bound but at baseline uses a cane, appears chronically ill elderly male who is very obese Head/Face: Normocephalic, atraumatic Eyes: PERRL, EOMI, vision at baseline ENT: oral cavity clear, TMs clear, no signs of infection Neck: Trachea midline, supple, no nuchal rigidity Cardiovascular: RRR, normal S1/S2, No MRGs, no JVD Respiratory: CTAB, no respiratory distress, No rales or wheezes Abdomen: Soft, non-tender, non-distended, normal bowel sounds, no guarding or rebound. Skin: Warm, dry, normal turgor, no rash MS/Extremity: Pulses equal, no cyanosis, neurovascular intact, FROM Neuro: COAx4, GCS 15, strength 5/5, CN 2-12 intact, normal cerebellar exam, normal gait, Psych: Normal behavior, mood, and affect normal Extremities-trace edema without any palpable cords, Homans sign is negative Results (Laboratory/Radiology) Laboratory/Radiology Laboratory Tests Test 09/15/24 21:57 White Blood Count 11.2 K/uL (4.8-10.8) H Red Blood Count 4.78 MIL/uL (4.50-6.20) Hemoglobin 14.6 g/dL (14.0-18.0) Hematocrit 43.7 % (42-54) Mean Corpuscular Volume 91.4 fL (79-99) Mean Corpuscular Hemoglobin 30.5 pg (27.0-33.0) Mean Corpuscular Hemoglobin Concent 33.4 g/dL (32.0-36.0) Red Cell Distribution Width 13.5 % (11.0-15.5) Platelet Count 218 K/uL (130-400) Mean Platelet Volume 12.0 fL (7.5-10.5) H Immature Granulocyte % (Auto) 0.4 % (0-1) Neutrophils (%) (Auto) 65.5 % (40.0-77.0) Lymphocytes (%) (Auto) 25.6 % (21.0-51.0) Monocytes (%) (Auto) 7.5 % (3.0-13.0) Eosinophils (%) (Auto) 0.6 % (0.0-8.0) Basophils (%) (Auto) 0.4 % (0.0-5.0) Neutrophils # (Auto) 7.4 K/uL (1.8-7.7) Lymphocytes # (Auto) 2.9 K/uL (1.0-4.8) Monocytes # (Auto) 0.8 K/uL (0.1-1.0) Eosinophils # (Auto) 0.07 K/uL (0.00-0.70) Basophils # (Auto) 0.04 K/uL (0.00-0.20) Absolute Immature Granulocyte (auto 0.04 K/uL (0-1) Nucleated Red Blood Cells 0.0 % (0.0-0.19) Sodium Level 136 mmol/L (136-145) Potassium Level 5.3 mmol/L (3.5-5.1) H Chloride Level 100 mmol/L (101-111) L Carbon Dioxide Level 26 mmol/L (21-32) Blood Urea Nitrogen 48 mg/dL (7-18) H Creatinine 1.5 mg/dL (0.5-1.3) H Glomerular Filtration Rate Calc 47 mL/min (>90) Random Glucose 272 mg/dL (70-105) H Lactic Acid Level 2.4 mmol/L (0.8-2.5) Total Calcium 8.7 mg/dL (8.5-10.1) Labs Reviewed?: Yes EKG Comment: Twelve lead EKG showed a heart rate of 61, IN 181, QRS 138, QT/QTC 436/446 Impression normal sinus rhythm atrial paced, ventricular trigeminy left bundle branch block and right bundle nonspecific ST-T changes. No acute ST elevations that I could appreciate Interpreted by ER MD Dr. Swain X-RAY Comment: PATIENT: MARGARITO MANNING MR#: [id number] : 1945 SEX: M AGE: 79 LOCATION: [facility] ORDER 33 STATUS: REG ER REPORT#: [id number] SERVICE 31 REASON: Generalized weakness ORDERING PHYSICIAN: LOGAN SWAIN MD PROCEDURE: CXR1VW - CHEST 1VW CHEST 1VW CLINICAL HISTORY: Generalized weakness COMPARISON: 10/02/2023 TECHNIQUE: Single view of the chest was obtained. FINDINGS: Lungs are clear. The cardiac size is unremarkable. The bony structures and pacemaker are stable. IMPRESSION: No acute cardiopulmonary process identified. DICTATED BY: EDMOND BRYANT DO DATE: 09/15/242206 ELECTRONICALLY SIGNED BY: EDMOND BRYANT DO DATE: 09/15/242213 ED Course ED Course Orders Procedure Category Date Status Time Cbc With Differential LAB 09/15/24 Complete 21:32 Basic Metabolic Panel LAB 09/15/24 Complete 21:32 Urinalysis Profile LAB 09/15/24 Logged 21:32 12 Lead Ekg Tracing- EKG 09/15/24 Transmitted Technical 21:32 Chest 1vw RAD 09/15/24 Resulted 21:32 0.9% Nacl 500ml PHA 09/15/24 Complete Iv.Soln (Ns 500ml 22:00 Lactic Acid LAB 09/15/24 Complete 21:32 Acetaminophen 500mg PHA 09/15/24 Complete Tab (Tylenol 500mg T 22:30 Edm Admit Bridge Order ADM 09/15/24 Transmitted 23:26 Admit Orders ADM 09/15/24 Transmitted 23:26 Current Medications Medications (Trade) Dose Ordered Sig/Geri Route PRN Reason Start Time Stop Time Status Last Admin Dose Admin Acetaminophen (TYLenol 500MG TAB) 500 mg ONCE ONCE PO 09/15/24 22:30 09/15/24 22:31 DC 09/15/24 23:25 Sodium Chloride 500 ml @ 0 mls/hr ONCE ONCE IV 09/15/24 22:00 09/15/24 22:01 DC 09/15/24 23:23 Vital Signs Date Time Temp Pulse Resp B/P (MAP) Pulse Ox O2 Delivery O2 Flow Rate FiO2 09/15/24 21:29 98.1 70 16 123/72 100 Room Air 0 We will perform diagnostic labs, advanced imaging and administer medications according to the patient's complaint. Once the results are available, will review and personally interpreted the labs to rule out any acute life- threatening emergency the trach require immediate intervention and treatment. I will then re-evaluate the patient after treatment and diagnostic exams have return to determine whether the patient requires any further testing, can safely be discharged home or need further admission to hospital for additional treatment and evaluation. Medical Decision Making MDM MDM: Differential diagnosis: Generalized weakness could be secondary to viral illness, dehydration, anemia, simply deconditioning, hypothyroidism, vitamin deficiencies Rationale: Tests considered and ordered secondary to shared decision making include: labs, ECG and radiology Previous outside records reviewed: Old ER visits. Risk of complication and/or morbidity or mortality of patient management: None Medications-Per medication reconciliation Need for hospitalization: Patient does meet criteria for hospitalization. Need for emergency major/minor surgery: No There are no social concerns with this patient. Prescription drug management Prescriptions will include symptomatic care Patient's prior external medical records from other ER visits were reviewed by me as indicated. Prior testing and results from previous visits were reviewed. Prior tests were taken into account with medical decision making and resource utilization, independent historian/historians were used to obtain complete medical history. I independently interpreted the test that were performed, results were reviewed by me and considered findings on radiology if ordered. Medical management and examination interpretation discussions were had by me with other qualified healthcare professionals as indicated for the patient's care. Problem List Problem List: (1) Shoulder pain, bilateral (2) Acute kidney injury superimposed on chronic kidney disease (3) Lactic acidosis (4) Uncontrolled diabetes mellitus with hyperglycemia (5) Ventricular trigeminy (6) Coronary artery disease DX & DISP Disposition: Inpatient Decision to Admit Time: 22:31 Departure Impression: Primary Impression: Acute kidney injury superimposed on chronic kidney disease Additional Impressions: Lactic acidosis, Uncontrolled diabetes mellitus with hyperglycemia, Ventricular trigeminy, Coronary artery disease, Shoulder pain, bilateral Condition: Stable Additional Instructions: Patient was informed of all the diagnostic labs and procedures conducted in the emergency room today and demonstrated understanding of the results. I personally reviewed and interpreted all the diagnostic exams performed in the ER today. The patient will be admitted to the hospital for further treatment and evaluation. Disposition-admit to facility Condition-stable/guarded Course-uncertain at this time Pain status-decreased Assessment-exam unchanged Admission Certification- I certify that the patients status is appropriate and is based on my best clinical judgment and the patient's condition as documented in the medical records Referrals: CORRINA ESTES MD (PCP) LOGAN SWAIN MD Sep 15, 2024 21:37
[2024-09-15 22:03] LABS: BASOPHILS # (AUTO) 0.04 K/uL (0.00-0.20); BASOPHILS % (AUTO) 0.4 % (0.0-5.0); EOSINOPHILS # (AUTO) 0.07 K/uL (0.00-0.70); EOSINOPHILS % (AUTO) 0.6 % (0.0-8.0); HEMATOCRIT 43.7 % (42-54); IMMATURE GRANULOCYTE ABSOLUTE 0.04 K/uL (0-1); LYMPHOCYTES # (AUTO) 2.9 K/uL (1.0-4.8); LYMPHOCYTES % (AUTO) 25.6 % (21.0-51.0); MEAN CORPUSCULAR HEMOGLOBIN 30.5 pg (27.0-33.0); MEAN CORPUSCULAR HGB CONC 33.4 g/dL (32.0-36.0); MEAN CORPUSCULAR VOLUME 91.4 fL (79-99); MONOCYTES # (AUTO) 0.8 K/uL (0.1-1.0); MONOCYTES % (AUTO) 7.5 % (3.0-13.0); NEUTROPHILS # (AUTO) 7.4 K/uL (1.8-7.7); NEUTROPHILS % (AUTO) 65.5 % (40.0-77.0); PLATELET COUNT (AUTO) 218 K/uL (130-400); RED BLOOD CELL COUNT(AUTO) 4.78 MIL/uL (4.50-6.20); RED CELL DISTRIBUTION WIDTH 13.5 % (11.0-15.5); WHITE BLOOD COUNT (AUTO) 11.2 K/uL (4.8-10.8)
--- NOTE | 2024-09-15 22:14 | HMCIMG ---
CHEST 1VW CLINICAL HISTORY: Generalized weakness COMPARISON: 10/02/2023 TECHNIQUE: Single view of the chest was obtained. FINDINGS: Lungs are clear. The cardiac size is unremarkable. The bony structures and pacemaker are stable. IMPRESSION: No acute cardiopulmonary process identified.
[2024-09-15 22:18] LABS: CREATININE 1.5 mg/dL (0.5-1.3); POTASSIUM 5.3 mmol/L (3.5-5.1)
[2024-09-15] MEDS: 0.9% NACL 500ML IV.SOLN 500 ML IV ONE (23:23)
[2024-09-15] MEDS: acetaMINOPHEN 500 MG TABLET PO ONE (23:25)
[2024-09-15] MEDS ORDERED: LOSA25TA41 PO (23:38)
[2024-09-15] MEDS ORDERED: GABA300C PO (23:38)
[2024-09-15] MEDS ORDERED: SULF1TAB89 PO (23:38)
[2024-09-16] VITALS (7 sets, daily range): BP systolic 117–155; BP diastolic 52–70; PULSE 62–73; RESP 16–18; TEMP 98–98.3; O2SAT 94–97
[2024-09-16] MEDS ORDERED: acetaMINOPHEN 325 MG TAB PO PRN (00:30)
[2024-09-16] MEDS ORDERED: acetaMINOPHEN 650 MG SUPPOSITORY RC PRN (00:30)
[2024-09-16] MEDS ORDERED: ALBUTEROL 0.083% 2.5 MG/3 ML INH IH PRN (00:30)
[2024-09-16] MEDS ORDERED: LAbetaLOL 20MG SYG IV PRN (00:30)
[2024-09-16] MEDS ORDERED: hydrALAZine 20MG/ML VIAL IV PRN (00:30)
--- NOTE | 2024-09-16 01:00 | NUR ---
UA SAMPLE Attempted to obtain urine sample, but patient forgetful and accidentally spilled all of urine from urinal on floor.
[2024-09-16] MEDS: LACTATED RINGERS 1000ML 1,000 ML IV SCH (01:28)
[2024-09-16 06:04] LABS: ADD UA MICROSCOPIC YES; APPEARANCE,URINE CLEAR (CLEAR); BILIRUBIN,URINE NEGATIVE (NEGATIVE); COLOR,URINE LIGHT-YELLOW (YELLOW); GLUCOSE, URINE (UA) 30 mg/dL (NEGATIVE); KETONES,URINE NEGATIVE (NEGATIVE); LEUKOCYTE ESTERASE ,URINE NEGATIVE Leu/uL (NEGATIVE); NITRATE,URINE NEGATIVE (NEGATIVE); OCCULT BLOOD,URINE NEGATIVE (NEGATIVE); PROTEIN,URINE NEGATIVE (NEGATIVE); UROBILINOGEN,URINE 0.2 mg/dL (0.2-1.0)
[2024-09-16 06:06] LABS: MUCUS,URINE RARE LPF (None Seen); RBC,URINE 0-1 /HPF (0-1); WBC,URINE 0-1 /HPF (0-1)
--- NOTE | 2024-09-16 06:10 | EKG ---
[facility] Test Date: 2024-09-15 Test Time: 21:44:56 Pat Name: MARGARITO MANNING Department: [facility] Patient ID: [id number] Room: ED 04 Gender: M It Network Architect: [id number] : 1945 Requested By: LOGAN LINARES Order Number: [id number] Reading MD: Celia Low Measurements Intervals [place] Rate: 61 P: 0 ID: [id number] QRS: -47 QRSD: 138 T: 30 QT: 436 QTc: 446 Interpretive Statements Atrial-paced complexes Ventricular trigeminy RBBB and LAFB Probable left ventricular hypertrophy Compared to ECG 10/01/2023 10:37:07 Ventricular premature complex(es) now present Sinus rhythm no longer present Electronically Signed On 09-16-2024 10:17:45 BUSINESS CONTINUITY PLANNER by Celia Low Please click the below link to view image of tracing.
[2024-09-16] MEDS: INSULIN humuLIN R 100 UNIT/ML 3ML SQ SCH (07:30)
[2024-09-16 08:00] LABS: HEMATOCRIT 41.7 % (42-54); MEAN CORPUSCULAR HEMOGLOBIN 30.3 pg (27.0-33.0); MEAN CORPUSCULAR HGB CONC 32.6 g/dL (32.0-36.0); MEAN CORPUSCULAR VOLUME 92.9 fL (79-99); PLATELET COUNT (AUTO) 223 K/uL (130-400); RED BLOOD CELL COUNT(AUTO) 4.49 MIL/uL (4.50-6.20); RED CELL DISTRIBUTION WIDTH 13.7 % (11.0-15.5)
[2024-09-16 08:13] LABS: CREATININE 1.4 mg/dL (0.5-1.3); MAGNESIUM 2.2 mg/dL (1.80-2.40); POTASSIUM 4.1 mmol/L (3.5-5.1)
[2024-09-16 08:34] LABS: EOSINOPHILS % (MANUAL) 4 % (1-6); LYMPHOCYTES % (MANUAL) 42 % (22-44); MAN.DIFF COMMENT-IMPRESSION MANUAL DIFFERENTIAL; MONOCYTES % (MANUAL) 9 % (2-9); PLATELET MORPHOLOGY COMMENT ADEQUATE; SEGMENTED NEUTROPHILS % 45 % (40-70); TOTAL CELLS COUNTED 100; WBC MORPHOLOGY CONSISTENT W/DIFF
[2024-09-16] MEDS: PANTOPrazole 40 MG TAB DR PO SCH (09:00)
[2024-09-16] MEDS: polyETHYLene GLYCol 3350 17 GM POWD.PACK PO SCH (09:00)
[2024-09-16] MEDS: ASCORBIC ACID 500 MG TAB PO SCH (09:00)
[2024-09-16 11:35] LABS: COVID19 (SARS ANTIGEN RAPID) PRESUMPTIVE NEGATIVE (NEGATIVE)
[2024-09-16 11:36] LABS: INFLUENZA TYPE A Negative For Type A (NEGATIVE); INFLUENZA TYPE B Negative For Type B (NEGATIVE)
--- NOTE | 2024-09-16 13:45 | NUR ---
DCP: HOME Sw met with pt who states his son Yousif [phone] lives with him and assists as needed, drives pt to MD appts. Pt states he can complete ADLS on his own, uses cane as needed. No in home care services at thistime. PCP is Charles Aguilar. Pt denies need for SNF or referral at [place]. will return home with son. Addendum: 09/16/24 at 1404 by SEFERINO TEE SS Amended: Links added.
--- NOTE | 2024-09-16 14:53 | HP ---
[facility] HISTORY & PHYSICAL Date Patient Seen: Sep 16, 2024 Time of Visit: 14:53 Supervising Physician: Dr. Key Garner Primary Care Physician: Dr. Tammi Aguilar Outpatient Specialists: [ ] Inpatient Consults: [ ] PROBLEM LIST: Shoulder pain, bilateral Acute kidney injury superimposed on chronic kidney disease Lactic acidosis Uncontrolled diabetes mellitus with hyperglycemia Ventricular trigeminy Coronary artery disease HPI: Patient is a 78-year-old male with a past medical history significant for CKD, uncontrolled diabetes who presented to the ER with bilateral shoulder pain left greater than right. Patient received an x-ray during his visit which shows a left-sided complete shoulder replacement surgery, with all pieces and screws appearing to be in place. Patient's blood work is unremarkable except for mild lactic acidosis, mild EDWIGE on CKD. Upon evaluation the patient appears clinically well, denies any discomfort at the time and states that his pain has resolved shortly after his visit to the ER. Aside from his prosthesis the chest x-ray appears unremarkable. In review of the patient's home medications he is currently on Bactrim through his PCP which we will discontinue at this time as this is likely the cause and etiology of the patient's EDWIGE. Patient received IV fluid hydration at 75 mL/hour and was eventually discharged from the ED ambulating independently, tolerating his diet, and endorsing resolution of his original symptoms. Patient was advised to follow up with his PCP early next week. PAST MEDICAL HX: see above PAST SURGICAL HX: noncontributory SOCIAL HISTORY: No tobacco, ETOH, or illicit drug use Coded Allergies: morphine (Unverified Allergy, Unknown, HAULLUCINATIONS, 01/06/15) REVIEW OF SYSTEMS: 12 point ROS reviewed with patient. Pertinent positives mentioned above. Otherwise negative. PHYSICAL EXAM: GENERAL: alert, weak, awake oriented x 3 HEENT: EOMI, Sclera non icteric, moist mucosa NECK: Supple, no JVD, trachea midline LUNGS: Clear breath sounds bilaterally. No wheezes HEART: Regular rate and rhythm. Normal S1 and S2, without murmurs ABD: Abdomen soft, nontender. Bowel sounds present EXT: No clubbing cyanosis or edema NEURO: Alert and oriented to person, follows commands Vital Signs (last 8hr) Date Time Temp Pulse Resp B/P (MAP) Pulse Ox O2 Delivery O2 Flow Rate FiO2 09/16/24 11:38 98.2 73 18 155/59 100 Room Air 21 09/16/24 09:00 97 Room Air* 0 21 09/16/24 07:45 98.1 62 16 117/63 99 Room Air 21 LABS: Hematology Labs: Test 09/16/24 06:58 09/15/24 21:57 Range/Units White Blood Count 14.0 H 4.8-10.8 K/uL Red Blood Count 4.49 L 4.50-6.20 MIL/uL Hemoglobin 13.6 L 14.0-18.0 g/dL Hematocrit 41.7 L 42-54 % Mean Corpuscular Volume 92.9 79-99 fL Mean Corpuscular Hemoglobin 30.3 27.0-33.0 pg Mean Corpuscular Hemoglobin Concent 32.6 32.0-36.0 g/dL Red Cell Distribution Width 13.7 11.0-15.5 % Platelet Count 223 130-400 K/uL Mean Platelet Volume 12.0 H 7.5-10.5 fL Segmented Neutrophils % 45 40-70 % Lymphocytes % (Manual) 42 22-44 % Monocytes % (Manual) 9 2-9 % Eosinophils % (Manual) 4 1-6 % Nucleated Red Blood Cells 0.0 0.0-0.19 % Differential Comment MANUAL DIFFERENTIAL White Cell Morphology Comment CONSISTENT W/DIFF Platelet Morphology Comment ADEQUATE Red Blood Cell Morphology See comments Immature Granulocyte % (Auto) 0.4 0-1 % Neutrophils (%) (Auto) 65.5 40.0-77.0 % Lymphocytes (%) (Auto) 25.6 21.0-51.0 % Monocytes (%) (Auto) 7.5 3.0-13.0 % Eosinophils (%) (Auto) 0.6 0.0-8.0 % Basophils (%) (Auto) 0.4 0.0-5.0 % Neutrophils # (Auto) 7.4 1.8-7.7 K/uL Lymphocytes # (Auto) 2.9 1.0-4.8 K/uL Monocytes # (Auto) 0.8 0.1-1.0 K/uL Eosinophils # (Auto) 0.07 0.00-0.70 K/uL Basophils # (Auto) 0.04 0.00-0.20 K/uL Absolute Immature Granulocyte (auto 0.04 0-1 K/uL Chemistry Labs: Test 09/16/24 11:32 09/16/24 06:58 Range/Units Whole Blood Glucose 186 H 70-110 MG/DL Sodium Level 141 136-145 mmol/L Potassium Level 4.1 3.5-5.1 mmol/L Chloride Level 105 101-111 mmol/L Carbon Dioxide Level 28 21-32 mmol/L Blood Urea Nitrogen 40 H 7-18 mg/dL Creatinine 1.4 H 0.5-1.3 mg/dL Glomerular Filtration Rate Calc 51 >90 mL/min Random Glucose 87 # 70-105 mg/dL Lactic Acid Level 2.6 H 0.8-2.5 mmol/L Total Calcium 8.6 8.5-10.1 mg/dL Magnesium Level 2.20 1.80-2.40 mg/dL DIAGNOSTICS / RADIOLOGY RESULTS: [ ] PLAN NEURO: Minimize central acting medications as possible. Maintain fall precautions, adequate lighting during the day PULMONARY: Supplemental 02 as needed. Maintain aspiration precautions at all times CARDIOVASCULAR: Follow hemodynamics. Vital signs per facility protocol GI & NUTRITION: Continue with nutritional support. Continue stool softeners and laxatives as needed. KIDNEYS & ELECTROLYTES: Strict monitoring of intake, output and overall fluid balance. Avoid nephrotoxic medications to the extent possible. Medications to be dosed according to renal function. Monitor electrolytes and replace as needed ENDOCRINE: Maintain blood glucose between 100-180 at all times. Hypoglycemia protocol in place INFECTIOUS DISEASE: Trend temperature, WBC and procalcitonin level Follow cultures, deescalate antibiotics as soon as possible. Panculture if new onset fever ONCOLOGY/HEMATOLOGY/COAGULATION: Monitor for s/s of bleeding Monitor hemoglobin, coagulation studies as needed SKIN: Pressure ulcer prevention per facility protocol Specialty mattress ORTHO/REHAB: Continue PT/OT Prophylaxis: Continue GI and DVT prophylaxis Code Status: Full Resuscitation Disposition: TBD Other: Total patient care time exceeds 35 minutes excluding all procedures. BROWN DE ANDA Sep 16, 2024 14:53
--- NOTE | 2024-09-16 16:43 | DS ---
[facility] DISCHARGE SUMMARY Date Patient Seen: Sep 16, 2024 Time of Visit: 16:43 Supervising Physician: Dr. Key Garner Primary Care Physician: Dr. Tammi Aguilar Outpatient Specialists: [ ] Inpatient Consults: [ ] HOSPITAL COURSE: HPI (per admitting provider) Patient is a 78-year-old male with a past medical history significant for CKD, uncontrolled diabetes who presented to the ER with bilateral shoulder pain left greater than right. Patient received an x-ray during his visit which shows a left-sided complete shoulder replacement surgery, with all pieces and screws appearing to be in place. Patient's blood work is unremarkable except for mild lactic acidosis, mild EDWIGE on CKD. Upon evaluation the patient appears clinically well, denies any discomfort at the time and states that his pain has resolved shortly after his visit to the ER. Aside from his prosthesis the chest x-ray appears unremarkable. In review of the patient's home medications he is currently on Bactrim through his PCP which we will discontinue at this time as this is likely the cause and etiology of the patient's EDWIGE. Patient received IV fluid hydration at 75 mL/hour and was eventually discharged from the ED ambulating independently, tolerating his diet, and endorsing resolution of his original symptoms. Patient was advised to follow up with his PCP early next week. The patient was treated for the following problems: ACTIVE PROBLEM LIST FOR THE HOSPITALIZATION: Shoulder pain, bilateral, resolved Acute kidney injury superimposed on chronic kidney disease, inmproved Lactic acidosis, improved CHRONIC PROBLEMS: continue previous management per PCP unless otherwise indicated Uncontrolled diabetes mellitus with hyperglycemia Ventricular trigeminy Coronary artery disease DISTRICT MANAGER FINDINGS/RECOMMENDATIONS: [ ] PROCEDURES: as mentioned above DISCHARGE MEDICATIONS: Pt hemodynamically stable and afebrile at time of discharge. PCP notified of patients admission, hospital course and discharge. PHYSICAL EXAM: GENERAL: alert, weak, awake oriented x 3 HEENT: EOMI, Sclera non icteric, moist mucosa NECK: Supple, no JVD, trachea midline LUNGS: Clear breath sounds bilaterally. No wheezes HEART: Regular rate and rhythm. Normal S1 and S2, without murmurs ABD: Abdomen soft, nontender. Bowel sounds present EXT: No clubbing cyanosis or edema NEURO: Alert and oriented to person, follows commands FOLLOW-UP: Follow-up with PCP in 2-3 days RECOMMENDATIONS: See Discharge Instructions This case was seen and discussed with my supervising physician. More than 30 minutes spent on discharge process, including evaluation of the patient, discussion with nursing staff, medication reconciliation and follow-up appointments BROWN DE ANDA Sep 16, 2024 16:43
--- NOTE | 2024-09-16 18:24 | NUR ---
Patient was discharged, all discharge documentation and personal items taken by patient and daughter (Korina). Patient informed to follow up with primary care provider in 3-5 days and to discontinue Bactrim. Patient also advise to speak with primary care provider about Metformin regimen. Patient daughter verbalized understanding of information. IV was removed, patient ambulated out of facility accompanied by daughter.
== END 2024-09-16 16:55 | disposition home or self-care (01) ==
LOC: EDH 21:24 → INTOOBSV 23:26 → EDHIP 23:26
PROVIDERS: ADMIT Internal Medicine Critical Care Medicine; ATTEND Internal Medicine Critical Care Medicine
DX: N17.9 Acute kidney failure, unspecified (principal); Z20.822 Contact with and (suspected) exposure to COVID-19; I13.0 Hypertensive heart and chronic kidney disease with heart failure and stage 1 through stage 4 chronic kidney disease, or unspecified chronic kidney disease; E11.22 Type 2 diabetes mellitus with diabetic chronic kidney disease; N18.9 Chronic kidney disease, unspecified; I50.9 Heart failure, unspecified; E11.65 Type 2 diabetes mellitus with hyperglycemia; R00.8 Other abnormalities of heart beat; E87.20 Acidosis, unspecified; I25.10 Atherosclerotic heart disease of native coronary artery without angina pectoris; R53.1 Weakness; Z79.84 Long term (current) use of oral hypoglycemic drugs; Z95.5 Presence of coronary angioplasty implant and graft; Z79.899 Other long term (current) drug therapy
CPT/HCPCS: 99285; 80048 ×2; 85025 ×2; 83605 ×2; 36415 ×2; 71045; 93005; 96360; 96361; 83735; 87804 ×2; 82948 ×2; 87426; 81001; 94664; J1815; G0378 ×16